=== PATIENT | female | born 1995 | race Caucasian/White ===

== ENCOUNTER 2019-07-19 17:59 | Emergency (ER) | payer MEDICAID ==
[~2019-07-19] VITALS: Ht 152.4 cm; Wt 102.1 kg
[2019-07-19 18:00] VITALS: BP 106/72; Ht 152.4 cm; Wt 102.1 kg
== END 2019-07-19 21:21 | disposition home or self-care (01) ==
LOC: ED 17:59
DX: R51 Headache (principal)
CPT/HCPCS: J1885